=== PATIENT | male | born 2000 | race African-American/Black ===

== ENCOUNTER 2020-06-26 05:08 | Day surgery (SDC) | payer OTHER ==
[2020-06-25 08:59] VITALS: BMI 36.5
[~2020-06-26 05:08] MED LIST: BACITRACIN 15 GM TUBE TOPICAL OINTMENT TP ONE
--- NOTE | 2020-06-26 10:46 | HP ---
History & Physical Update - History History: No Change - Physical Physical: No Change - Assessment Assessment: No Change - Plan Plan: No Change
--- NOTE | 2020-06-26 10:47 | OP ---
Operative Note - Note: Operative Date: 06/26/20 Pre-Operative Diagnosis: phimosis Operation: circumcision Findings: phimosis Post-Operative Diagnosis: Same as Pre-op Surgeon: Ariel Louise Anesthesiologist/BANK OFFICER: Julio Martinez Anesthesia: General, Local Specimens Removed: foreskin Estimated Blood Loss (mls): 0 Operative Report Dictated: Yes
[2020-06-26] MEDS ORDERED: PROPOFOL 20 ML ONE ×2 (11:30→12:25)
[2020-06-26] MEDS ORDERED: MIDAZOLAM HCL 2 MG/2 ML SINGLE DOSE VIAL ONE (11:30)
[2020-06-26] MEDS ORDERED: BUPIVACAINE HCL/PF 0.75% 10 ML VIAL ONE (12:09)
[2020-06-26] MEDS ORDERED: ceFAZolin SODIUM 1 GM VIAL ONE (12:27)
[2020-06-26] MEDS ORDERED: ceFAZolin SODIUM 1 GM VIAL IVPB ONE (12:30)
[2020-06-26] MEDS ORDERED: BUPIVACAINE HCL 0.5% 250 MG/50 ML VIAL IJ ONE (12:35)
[2020-06-26] MEDS ORDERED: oxyCODONE HCL 5 MG TABLET PO PRN (12:36)
[2020-06-26] MEDS ORDERED: ONDANSETRON 4 MG/2 ML VIAL IVPUSH PRN (12:36)
[2020-06-26] MEDS ORDERED: ACETAMINOPHEN 1000 MG/100 ML VIAL (NON FORMULARY) IVPB ONE (12:36)
[2020-06-26] MEDS ORDERED: LIDOCAINE HCL/PF 2% SDV 5ML VIAL ONE (12:38)
[2020-06-26] MEDS ORDERED: BACITRACIN 15 GM TUBE TOPICAL OINTMENT TP ONE (13:03)
[2020-06-26 14:45] VITALS: BP 135/81; PULSE 69; TEMP 98
--- NOTE | 2020-06-29 11:58 | OP ---
DATE OF OPERATION: 06/26/2020 PREOPERATIVE DIAGNOSIS: Phimosis. POSTOPERATIVE DIAGNOSIS: Phimosis. PROCEDURE: Circumcision. SURGEON: Ariel Mcmullen MD SAFETY TRAINER: None. ANESTHESIA: General via laryngeal mask with local. ANESTHESIOLOGIST: Keith Mendez MD SPECIMEN: Foreskin. CULTURES: None. DRAINS: None. ESTIMATED BLOOD LOSS: Negligible. COMPLICATIONS: None. DESCRIPTION OF PROCEDURE: Patient was brought in the operating room, placed on the operating table in supine position. After the administration of general anesthesia via laryngeal mask, intravenous antibiotics were administered. Genitals and perineum were prepped and draped in the usual sterile manner. Next, 10 mL of 0.5% Marcaine was injected circumferentially to the base of the penis as a penile block. The circumferential incision was outlined with a marking pen at the level of the reyes using anatomic position. The circumcoronal incision was made with a scalpel, carried down through the underlying layer. The foreskin was then retracted, and the subcoronal preputial mucosal tissue was now approximated using interrupted 4-0 chromic sutures circumferentially. Hemostasis was assured. The wound was sterilely dressed with Bacitracin, Xeroform gauze, 4 x 4, and Coban. He was transferred to recovery room in stable condition, having tolerated the procedure well. ARIEL MCMULLEN M.D. [id number]
--- NOTE | 2020-07-01 17:57 | PATH ---
Surgical Pathology Report Patient Name: SHILA MORA Med. Rec. #: [id number] /Age/Gender: 2000 (Age: 19) / F Account: [id number] Location: [facility] SUR[facility] Taken: 06/26/2020 Received: 06/26/2020 Reported: 07/01/2020 Physicians: Ariel Louise M.D. Specimen(s) Received [place] Clinical History Phimosis Final Diagnosis [place], CIRCUMCISION: GENITAL SKIN WITH PATCHY MILD CHRONIC SUPERFICIAL DERMAL INFLAMMATION. Electronically Signed Cindy Arizmendi M.D. Gross Description Received in formalin labeled "foreskin," is a 5.5 x 3.3 x 0.5 cm matias-brown, irregular, wrinkled portion of skin, consistent with foreskin. No discrete lesions are identified. A factory representative section is submitted in one cassette. /06/26/2020 saudi06/26/2020
== END 2020-06-26 14:47 | disposition home or self-care (01) ==
LOC: EDSEX → JASU-SURG 05:08
PROVIDERS: ATTEND Urology
PROC: 0VTTXZZ Resection of Prepuce, External Approach (ICD-10-PCS; principal; 2020-06-26 13:00)
DX: N47.1 Phimosis (principal)
CPT/HCPCS: 88304-TC; 94760